=== PATIENT | male | born 1985 | race Caucasian/White ===

== ENCOUNTER 2017-07-12 21:21 | Emergency (ER) | payer SELFPAY ==
[~2017-07-12 21:21] MED LIST: CYCL-36 PO; IBUP800 PO
[2017-07-12 21:38] VITALS: BP 138/76; PULSE 90; RESP 18; TEMP 98.7; O2SAT 98
[2017-07-12] MEDS ORDERED: SODIUM CHLOR 0.9% 1000 ML INJ 1,000 ML IV ONE (21:53)
--- NOTE | 2017-07-12 21:56 | PD ---
HPI Chief Complaint: Dizziness Time Seen by Provider: 21:44 Travel History International Travel<30 days: No Contact w/Intl Traveler<30days: No Traveled to known affect area: No History of Present Illness HPI 32-year-old male presents for evaluation after witnessed syncopal event. Prior to arrival the patient was sitting in a chair at an meeting. He reports that he pressed on his left mid back where he has been having pain and he reports that he felt lightheaded and dizzy and hot and then he passed out. He had a witnessed 45-second syncopal episode in the chair. He did not fall onto the ground. Currently feels improved. He reports that he has had left mid back pain for the past 4 days on a constant basis. He does not recall any injuries. Denies abdominal pain, chest pain, shortness of breath, nausea or vomiting, headache, blurred vision, hematuria. No history of kidney stones. No significant past medical history. He does report that he has had a productive cough for the past 2 months. The cough is productive with white sputum. He was seen at an outside hospital 1 month ago where he was prescribed azithromycin, prednisone and an inhaler and the cough persists. He has no other complaints. PFSH Past Medical History Medical History: Denies Significant Hx Diminished Hearing: No Immunizations Current: Yes Past Surgical History Surgical History: No Previous Surgery Social History Alcohol Use: No (QUIT) Tobacco Use: No (QUIT) Substance Use: No Allergies-Medications (Allergen,Severity, Reaction): Coded Allergies: No Known Allergies (Unverified Adverse Reaction, Unknown, 07/12/17) Reported Meds & Prescriptions Reported Meds & Active Scripts Active Flexeril (Cyclobenzaprine HCl) 10 Mg Tab 10 Mg PO TID PRN Motrin 800 Mg Tab (Ibuprofen) 800 Mg Tab 800 Mg PO Q8H PRN 10 Days Review of Systems Except as stated in HPI: all other systems reviewed are Neg Physical Exam Narrative GENERAL: Well-developed well-nourished male in no acute distress SKIN: Warm and dry. HEAD: Atraumatic. Normocephalic. EYES: Pupils equal and round. No scleral icterus. No injection or drainage. ENT: No nasal bleeding or discharge. Mucous membranes pink and moist. NECK: Trachea midline. No JVD. CARDIOVASCULAR: Regular rate and rhythm. No murmur appreciated. RESPIRATORY: No accessory muscle use. Clear to auscultation. Breath sounds equal bilaterally. GASTROINTESTINAL: Abdomen soft, non-tender, nondistended. Hepatic and splenic margins not palpable. MUSCULOSKELETAL: No obvious deformities. Some tenderness to palpation to the left thoracic paravertebral musculature. There is no tenderness to palpation along the thoracic or lumbar midline spine. NEUROLOGICAL: Awake and alert. No obvious cranial nerve deficits. Motor grossly within normal limits. Normal speech. PSYCHIATRIC: Appropriate mood and affect; insight and judgment normal. Data Data Last Documented VS Orders Orders Electrocardiogram (07/12/17 21:53) Complete Blood Count With Diff (07/12/17 21:53) Comprehensive Metabolic Panel (07/12/17 21:53) Magnesium (Mg) (07/12/17 21:53) Urinalysis - C+S If Indicated (07/12/17 21:53) Chest, Single Ap (07/12/17 21:53) Blood Glucose (07/12/17 21:53) Ecg Monitoring (07/12/17 21:53) Iv Access Insert/Monitor (07/12/17 21:53) Oximetry (07/12/17 21:53) Sodium Chloride 0.9% Flush (Ns Flush) (07/12/17 22:00) Sodium Chlor 0.9% 1000 Ml Inj (Ns 1000 M (07/12/17 21:53) Orthostatic Vital Signs (07/12/17 22:58) Orthostatic Vital Signs (07/12/17 23:36) Ed Discharge Order (07/13/17 01:22) Labs Laboratory Tests Test 07/12/17 22:25 07/12/17 22:30 White Blood Count 13.5 TH/MM3 Red Blood Count 5.74 MIL/MM3 Hemoglobin 16.6 GM/DL Hematocrit 48.3 % Mean Corpuscular Volume 84.2 FL Mean Corpuscular Hemoglobin 28.8 PG Mean Corpuscular Hemoglobin Concent 34.3 % Red Cell Distribution Width 14.3 % Platelet Count 382 TH/MM3 Mean Platelet Volume 7.0 FL Neutrophils (%) (Auto) 73.2 % Lymphocytes (%) (Auto) 18.2 % Monocytes (%) (Auto) 7.5 % Eosinophils (%) (Auto) 0.8 % Basophils (%) (Auto) 0.3 % Neutrophils # (Auto) 9.8 TH/MM3 Lymphocytes # (Auto) 2.4 TH/MM3 Monocytes # (Auto) 1.0 TH/MM3 Eosinophils # (Auto) 0.1 TH/MM3 Basophils # (Auto) 0.0 TH/MM3 CBC Comment DIFF FINAL Differential Comment Blood Urea Nitrogen 15 MG/DL Creatinine 1.19 MG/DL Random Glucose 89 MG/DL Total Protein 8.0 GM/DL Albumin 4.4 GM/DL Calcium Level 9.2 MG/DL Magnesium Level 1.9 MG/DL Alkaline Phosphatase 88 U/L Aspartate Amino Transf (AST/SGOT) 19 U/L Alanine Aminotransferase (ALT/SGPT) 28 U/L Total Bilirubin 0.7 MG/DL Sodium Level 139 MEQ/L Potassium Level 4.3 MEQ/L Chloride Level 100 MEQ/L Carbon Dioxide Level 34.1 MEQ/L Anion Gap 5 MEQ/L Estimat Glomerular Filtration Rate 72 ML/MIN Urine Color YELLOW Urine Turbidity CLEAR Urine pH 6.0 Urine Specific [place] 1.025 Urine Protein TRACE mg/dL Urine Glucose (UA) NEG mg/dL Urine Ketones NEG mg/dL Urine Occult Blood NEG Urine Nitrite NEG Urine Bilirubin NEG Urine Urobilinogen 2.0 MG/DL Urine Leukocyte Esterase NEG Urine RBC LESS THAN 1 /hpf Urine WBC 3 /hpf Urine Mucus FEW /lpf Microscopic Urinalysis Comment CULT NOT INDICATED MDM Medical Decision Making Medical Screen Exam Complete: Yes Emergency Medical Condition: Yes Medical Record Reviewed: Yes Differential Diagnosis Vasovagal syncope, hypoglycemia, orthostatic hypotension, electrolyte abnormality, arrhythmia Narrative Course The patient was placed on ECG monitor and pulse oximetry. Twelve-lead EKG was obtained. Chest x-ray, urinalysis, lab work ordered. The patient will be given IV fluids. Orthostatic vital signs will be obtained. He will be monitored. Chest x-ray reveals no acute abnormalities. EKG reveals sinus rhythm. At the end of my shift the patient was signed out pending laboratory evaluation Walter Avery July 12, 2017 21:56
[2017-07-12 22:00] VITALS: BP 124/67; PULSE 84; RESP 16; O2SAT 98
[2017-07-12] MEDS ORDERED: SODIUM CHLORIDE 0.9% FLUSH 10 ML FLUSH IVF PRN (22:00)
--- NOTE | 2017-07-12 22:31 | RADRPT ---
EXAM DATE/TIME: 07/12/2017 22:11 [facility] COMPARISON: No previous studies available for comparison. INDICATIONS : Cough and short of breath. MEDICAL HISTORY : None. SURGICAL HISTORY : None. ENCOUNTER: Initial ACUITY: 1 day PAIN SCORE: 0/10 LOCATION: Bilateral chest FINDINGS: A single view of the chest demonstrates the lungs to be symmetrically aerated without evidence of mas s, infiltrate or effusion. The cardiomediastinal contours are unremarkable. Osseous structures are intact. CONCLUSION: No acute disease. Dimitri Yin MD on July 12, 2017 at 22:28 Board Certified Radiologist. This report was verified electronically.
[2017-07-12 22:54] LABS: AUTOMATED NEUTROPHIL # 9.8 TH/MM3 (1.8-7.7); BASOPHIL % 0.3 % (0.0-2.0); EOSINOPHIL # 0.1 TH/MM3 (0-0.4); EOSINOPHIL % 0.8 % (0.0-4.0); HEMATOCRIT 48.3 % (39.0-51.0); HEMOGLOBIN 16.6 GM/DL (13.0-17.0); LYMPH % 18.2 % (9.0-44.0); LYMPHOCYTE # 2.4 TH/MM3 (1.0-4.8); MEAN CELL VOLUME 84.2 FL (80.0-100.0); MEAN CORPUSCULAR HEMOGLOBIN 28.8 PG (27.0-34.0); MEAN CORPUSCULAR HGB CONC 34.3 % (32.0-36.0); MONO % 7.5 % (0.0-8.0); NEUT % 73.2 % (16.0-70.0); PLATELET COUNT 382 TH/MM3 (150-450); RED BLOOD COUNT 5.74 MIL/MM3 (4.50-5.90); RED CELL DISTRIBUTION WIDTH 14.3 % (11.6-17.2); WHITE BLOOD COUNT 13.5 TH/MM3 (4.0-11.0)
[2017-07-12 23:00] VITALS: BP 125/66; PULSE 73; RESP 16; O2SAT 98
[2017-07-12 23:02] LABS: BILIRUBIN, URINE NEG (NEG); BLOOD, URINE NEG (NEG); GLUCOSE,URINE NEG (NEG); KETONE, URINE NEG (NEG); MUCUS URINE FEW /lpf (OCC); NITRITE,URINE NEG (NEG); URINE COLOR YELLOW (YELLW/STRAW); URINE LEUKOCYTE ESTERASE NEG (NEG)
[2017-07-12 23:07] LABS: ALKALINE PHOSPHATASE 88 U/L (45-117); TOTAL BILIRUBIN ADULT 0.7 MG/DL (0.2-1.0)
[2017-07-12 23:09] LABS: ALBUMIN 4.4 GM/DL (3.4-5.0); ALT (GPT) 28 U/L (12-78); AST (GOT) 19 U/L (15-37); BICARBONATE 34.1 MEQ/L (21.0-32.0); BLOOD UREA NITROGEN 15 MG/DL (7-18); CALCIUM 9.2 MG/DL (8.5-10.1); CHLORIDE 100 MEQ/L (98-107); CREATININE 1.19 MG/DL (0.60-1.30); GLOMERULAR FILTRATION RATE 72 ML/MIN (>89); GLUCOSE,RANDOM 89 MG/DL (74-106); MAGNESIUM 1.9 MG/DL (1.5-2.5); SODIUM (NA) 139 MEQ/L (136-145)
[2017-07-13 00:27] VITALS: BP_SYST 119; BP_SYST 126; BP_SYST 134; BP_DIAS 63; BP_DIAS 66; BP_DIAS 70; RESP 16
--- NOTE | 2017-07-13 01:17 | PD ---
Physical Exam Date Seen by Provider: July 13, 2017 Time Seen by Provider: 01:05 Narrative Patient was a syncopal episode patient has imaging done patient has labs done patient has orthostatics done all within normal limits there is no need for further workup in the ER there is no need for admission patient is discharged with vasovagal syncope follow-up as an outpatient Data Data Last Documented VS Vital Signs Date Time Temp Pulse Resp B/P (MAP) Pulse Ox O2 Delivery O2 Flow Rate FiO2 07/13/17 01:26 07/13/17 00:27 73 16 84 88 07/12/17 23:00 98 Room Air 07/12/17 21:38 98.7 Orders Orders Electrocardiogram (07/12/17 21:53) Complete Blood Count With Diff (07/12/17 21:53) Comprehensive Metabolic Panel (07/12/17 21:53) Magnesium (Mg) (07/12/17 21:53) Urinalysis - C+S If Indicated (07/12/17 21:53) Chest, Single Ap (07/12/17 21:53) Blood Glucose (07/12/17 21:53) Ecg Monitoring (07/12/17 21:53) Iv Access Insert/Monitor (07/12/17 21:53) Oximetry (07/12/17 21:53) Sodium Chloride 0.9% Flush (Ns Flush) (07/12/17 22:00) Sodium Chlor 0.9% 1000 Ml Inj (Ns 1000 M (07/12/17 21:53) Orthostatic Vital Signs (07/12/17 22:58) Orthostatic Vital Signs (07/12/17 23:36) Ed Discharge Order (07/13/17 01:22) Labs Laboratory Tests Test 07/12/17 22:25 07/12/17 22:30 White Blood Count 13.5 TH/MM3 Red Blood Count 5.74 MIL/MM3 Hemoglobin 16.6 GM/DL Hematocrit 48.3 % Mean Corpuscular Volume 84.2 FL Mean Corpuscular Hemoglobin 28.8 PG Mean Corpuscular Hemoglobin Concent 34.3 % Red Cell Distribution Width 14.3 % Platelet Count 382 TH/MM3 Mean Platelet Volume 7.0 FL Neutrophils (%) (Auto) 73.2 % Lymphocytes (%) (Auto) 18.2 % Monocytes (%) (Auto) 7.5 % Eosinophils (%) (Auto) 0.8 % Basophils (%) (Auto) 0.3 % Neutrophils # (Auto) 9.8 TH/MM3 Lymphocytes # (Auto) 2.4 TH/MM3 Monocytes # (Auto) 1.0 TH/MM3 Eosinophils # (Auto) 0.1 TH/MM3 Basophils # (Auto) 0.0 TH/MM3 CBC Comment DIFF FINAL Differential Comment Blood Urea Nitrogen 15 MG/DL Creatinine 1.19 MG/DL Random Glucose 89 MG/DL Total Protein 8.0 GM/DL Albumin 4.4 GM/DL Calcium Level 9.2 MG/DL Magnesium Level 1.9 MG/DL Alkaline Phosphatase 88 U/L Aspartate Amino Transf (AST/SGOT) 19 U/L Alanine Aminotransferase (ALT/SGPT) 28 U/L Total Bilirubin 0.7 MG/DL Sodium Level 139 MEQ/L Potassium Level 4.3 MEQ/L Chloride Level 100 MEQ/L Carbon Dioxide Level 34.1 MEQ/L Anion Gap 5 MEQ/L Estimat Glomerular Filtration Rate 72 ML/MIN Urine Color YELLOW Urine Turbidity CLEAR Urine pH 6.0 Urine Specific [place] 1.025 Urine Protein TRACE mg/dL Urine Glucose (UA) NEG mg/dL Urine Ketones NEG mg/dL Urine Occult Blood NEG Urine Nitrite NEG Urine Bilirubin NEG Urine Urobilinogen 2.0 MG/DL Urine Leukocyte Esterase NEG Urine RBC LESS THAN 1 /hpf Urine WBC 3 /hpf Urine Mucus FEW /lpf Microscopic Urinalysis Comment CULT NOT INDICATED MDM Medical Record Reviewed: Yes Supervised Visit with SARAY: Yes Narrative Course All labs and imaging and vital signs are within normal limits he is safe for discharge and follow-up as an outpatient Diagnosis Primary Impression: Syncopal episodes Qualified Codes: R55 - Syncope and collapse Patient Instructions: General Instructions, Syncope (ED) Disposition: 01 DISCHARGE HOME Condition: Jonas Fontanez MD July 13, 2017 01:17
--- NOTE | 2017-07-14 11:56 | EKG ---
Date Performed: 07/12/2017 Time Performed: 22:17:53 PTAGE: 32 years EKG: Sinus rhythm NORMAL ECG NO PREVIOUS TRACING DOCTOR: Leonor Olsen Interpretating Date/Time 07/14/2017 11:50:28
== END 2017-07-13 01:27 | disposition home or self-care (01) ==
LOC: NEPE 21:21
DX: R55 Syncope and collapse (principal)
CPT/HCPCS: 71045; 80053; 81001; 83735; 85025; 93005; 99285; J7030

== ENCOUNTER 2018-04-16 18:09 | Inpatient (IN) ==
--- NOTE | 2018-04-16 20:49 | ED ---
HPI General Chief complaint: Urogenital-Male Stated complaint: Possible kidney stone/nausea Time Seen by Provider: 04/16/18 20:30 History of Present Illness HPI narrative: RMChiqui Patient is a 32-year-old male with history of IV drug abuse last used 2 days ago and admitted slip up who is trying to become sober and living in a department today for evaluation of dark urine, "not feeling well", mild nausea without abdominal pain and noticing some yellowing of his eyes as well as pruritus. Patient states she is never been diagnosed with hepatitis before but is wondering if he might have liver problem. He has not seen a primary care physician in some time. No history of excessive Tylenol use or drinking. He is quite anxious about his symptoms. No easy bruising or bleeding, no blood in the stool no emesis. No fevers no cough no congestion. Symptoms moderate, for the past 2 days, gradually worsening, associated signs symptoms in context as above. Related Data Home Medications Medication Instructions Recorded Confirmed No Known Home Medications 04/16/18 04/16/18 Allergies Allergy/AdvReac Type Severity Reaction Status Date / Time No Known Allergies Allergy Unverified 10/30/17 14:50 Review of Systems ROS: all other systems reviewed are negative PMFSH Medical History Medical History IV drug abuse (Acute) Surgical History Surgical History No history of previous surgery (Acute) Family History Family History Other Family history normal Social History Social History Substance History: Past History Second Hand Smoke Exposure: No Smoking Status: Current every day smoker Tobacco Type: Cigarettes How Often Do You Have a Drink Containing Alcohol: Never Recent Travel in [place] within the Last 8 Weeks: No Recent Out of Country Travel within the Last 8 Weeks: No Substance Abuse Detail Opiates: Substance Use Status: Early Remission Route Used Substance Abuse: Intravenously Last Used: 2 days ago Immunization History Tetanus Immunization: >5 Years Exam Narrative Exam Narrative: GENERAL: Well-developed well-nourished, no obvious distress. SKIN: Focused skin assessment warm/dry. Some scattered excoriations from scratching, mild jaundice. HEAD: Atraumatic. Normocephalic. EYES: Pupils equal and round. Mild scleral icterus no injection or drainage. ENT: No nasal bleeding or discharge. Mucous membranes pink and moist. NECK: Trachea midline. No JVD. CARDIOVASCULAR: Regular rate and rhythm. No murmur appreciated. RESPIRATORY: No accessory muscle use. Clear to auscultation. Breath sounds equal bilaterally. GASTROINTESTINAL: Abdomen soft, non-tender, nondistended. Hepatic and splenic margins not palpable. Caro sign negative, no mass. MUSCULOSKELETAL: No obvious deformities. No clubbing. No cyanosis. No edema. NEUROLOGICAL: Awake and alert. No obvious cranial nerve deficits. Motor grossly within normal limits. Normal speech. PSYCHIATRIC: Appropriate mood and affect; insight and judgment normal. Course Hospital Course: I reviewed the patient's history and exam. I reviewed his laboratory testing. Patient has elevated transaminases and bilirubin. Patient's complaint of acute onset symptoms is consistent with acute hepatitis. I discussed the case with the patient as well as the admitting service who is agreed to admit the patient. Initial Documented Vital Signs Temperature 98.6 F 04/16/18 18:17 Pulse Rate 70 04/16/18 18:17 Respiratory Rate 17 04/16/18 18:17 Blood Pressure 156/72 H 04/16/18 18:17 Pulse Oximetry 99 04/16/18 18:17 Last Documented Vital Signs Temperature 98.6 F 04/16/18 18:17 Pulse Rate 67 04/16/18 22:20 Respiratory Rate 18 04/16/18 22:20 Blood Pressure 123/58 L 04/16/18 22:20 Pulse Oximetry 97 04/16/18 22:20 Medical Decision Making MDM Narrative Medical decision making narrative: Patient room in the emergency department, he appears to be in some level of liver failure and I would suspect he is on the milder side of the spectrum. Basic labs a CT scan of his abdomen and pelvis have been ordered. I think that if his labs reviewed that he is on a milder side of liver failure is indicated by bilirubin and coagulation studies (former I would expect to be mildly elevated) he can probably be discharged to these daily health clinic with the health department for further management. Patient seen as part of rapid medical assessment in triage. They were handed off to the SARAY to follow the MDM as outlined above. If results are outside the patient's expected ED course then either myself or the other physicians will be available for consultation. Medical Screen Exam Complete: Yes Emergency Medical Condition: Yes Lab Data Result diagrams: 04/16/18 21:05 04/16/18 21:05 Lab Results 04/16/18 04/16/18 04/16/18 Range/Units 20:30 21:05 21:05 WBC 6.7 (4.0-11.0) th/mm3 RBC 5.53 (4.50-5.90) mil/mm3 Hgb 16.7 (13.0-17.0) gm/dL Hct 47.1 (39.0-51.0) % MCV 85.3 (80.0-100.0) fL MCH 30.2 (27.0-34.0) pg MCHC 35.5 (32.0-36.0) % RDW 14.8 (11.6-17.2) % Plt Count 340 (150-450) th/mm3 MPV 7.9 (7.0-11.0) fL Neut % (Auto) 59.9 (16.0-70.0) % Lymph % (Auto) 28.0 (9.0-44.0) % [place] % (Auto) 9.1 H (0.0-8.0) % Eos % (Auto) 2.0 (0.0-4.0) % Baso % (Auto) 1.0 (0.0-2.0) % Neut # (Auto) 4.0 (1.8-7.7) th/mm3 Lymph # (Auto) 1.9 (1.0-4.8) th/mm3 [place] # (Auto) 0.6 (0.0-0.9) th/mm3 Eos # (Auto) 0.1 (0.0-0.4) th/mm3 Baso # (Auto) 0.1 (0.0-0.2) th/mm3 WBC Differential . Differential Comment Auto diff final PT 10.9 (9.8-11.6) sec INR 1.1 Ratio APTT 35.0 H (23.4-31.7) sec Sodium (136-145) meq/L Potassium (3.5-5.1) meq/L Chloride (98-107) meq/L Carbon Dioxide (21.0-32.0) meq/L Anion Gap (5-15) meq/L BUN (7-18) mg/dL Creatinine (0.60-1.30) mg/dL Estimated GFR (>89) mL/min Random Glucose (74-106) mg/dL Calcium (8.5-10.1) mg/dL Magnesium (1.5-2.5) mg/dL Total Bilirubin (0.2-1.0) mg/dL Direct Bilirubin (0.0-0.2) mg/dL Indirect Bilirubin (0.0-0.8) mg/dL AST (15-37) U/L ALT (12-78) U/L Alkaline Phosphatase (45-117) U/L Total Protein (6.4-8.2) g/dL Albumin (3.4-5.0) g/dL Lipase (73-393) U/L Urine Color [place] (Yellw/Straw) Urine Clarity Clear (Clear) Urine pH 7.0 (5.0-8.5) Ur Specific [place] 1.017 (1.002-1.035) Urine Protein 30 H (Neg-Trace) mg/dL Urine Glucose (UA) Negative (Negative) mg/dL Urine Ketones Negative (Negative) mg/dL Urine Occult Blood Negative (Negative) Urine Nitrate Negative (Negative) Urine Bilirubin Moderate H (Negative) Urine Ictotest Positive H (Negative) Urine Urobilinogen 1.0 (Less than 2) mg/dL Ur Leukocyte Esterase Negative (Negative) Urine RBC Less than 1 (0-3) /hpf Urine WBC 1 (0-5) /hpf Amorphous Sediment Rare H (None) /hpf Urine Bacteria Rare H (None) /hpf Urine Mucus Few H (Occasional) /lpf Micro UA Comment Culture not ind Ur Microscopic Review Not Reportable Urine Culture Comments Culture not ind Hepatitis A IgM Ab (Nonreactive) Hep Bs Antigen (Nonreactive) Hep B Core IgM Ab (Nonreactive) Hep C IgG Ab (Nonreactive) HIV 1&2 Ab/P24 Ag 4thGn (Nonreactive) 04/16/18 04/16/18 Range/Units 21:05 23:10 WBC (4.0-11.0) th/mm3 RBC (4.50-5.90) mil/mm3 Hgb (13.0-17.0) gm/dL Hct (39.0-51.0) % MCV (80.0-100.0) fL MCH (27.0-34.0) pg MCHC (32.0-36.0) % RDW (11.6-17.2) % Plt Count (150-450) th/mm3 MPV (7.0-11.0) fL Neut % (Auto) (16.0-70.0) % Lymph % (Auto) (9.0-44.0) % [place] % (Auto) (0.0-8.0) % Eos % (Auto) (0.0-4.0) % Baso % (Auto) (0.0-2.0) % Neut # (Auto) (1.8-7.7) th/mm3 Lymph # (Auto) (1.0-4.8) th/mm3 [place] # (Auto) (0.0-0.9) th/mm3 Eos # (Auto) (0.0-0.4) th/mm3 Baso # (Auto) (0.0-0.2) th/mm3 WBC Differential Differential Comment PT (9.8-11.6) sec INR Ratio APTT (23.4-31.7) sec Sodium 139 (136-145) meq/L Potassium 3.9 (3.5-5.1) meq/L Chloride 101 (98-107) meq/L Carbon Dioxide 30.6 (21.0-32.0) meq/L Anion Gap 7 (5-15) meq/L BUN 9 (7-18) mg/dL Creatinine 1.07 (0.60-1.30) mg/dL Estimated GFR 81 L (>89) mL/min Random Glucose 106 (74-106) mg/dL Calcium 9.0 (8.5-10.1) mg/dL Magnesium 2.2 (1.5-2.5) mg/dL Total Bilirubin 9.5 H (0.2-1.0) mg/dL Direct Bilirubin 7.6 H (0.0-0.2) mg/dL Indirect Bilirubin 1.9 H (0.0-0.8) mg/dL AST 1410 H (15-37) U/L ALT 1427 H (12-78) U/L Alkaline Phosphatase 160 H (45-117) U/L Total Protein 7.7 (6.4-8.2) g/dL Albumin 4.0 (3.4-5.0) g/dL Lipase 181 (73-393) U/L Urine Color (Yellw/Straw) Urine Clarity (Clear) Urine pH (5.0-8.5) Ur Specific [place] (1.002-1.035) Urine Protein (Neg-Trace) mg/dL Urine Glucose (UA) (Negative) mg/dL Urine Ketones (Negative) mg/dL Urine Occult Blood (Negative) Urine Nitrate (Negative) Urine Bilirubin (Negative) Urine Ictotest (Negative) Urine Urobilinogen (Less than 2) mg/dL Ur Leukocyte Esterase (Negative) Urine RBC (0-3) /hpf Urine WBC (0-5) /hpf Amorphous Sediment (None) /hpf Urine Bacteria (None) /hpf Urine Mucus (Occasional) /lpf Micro UA Comment Ur Microscopic Review Urine Culture Comments Hepatitis A IgM Ab Nonreactive (Nonreactive) Hep Bs Antigen Nonreactive (Nonreactive) Hep B Core IgM Ab Nonreactive (Nonreactive) Hep C IgG Ab Nonreactive (Nonreactive) HIV 1&2 Ab/P24 Ag 4thGn Nonreactive (Nonreactive) Imaging Data Radiologist's impression: Abdomen/Pelvis CT 04/16/18 20:35 CONCLUSION: 1. Mildly prominent periportal lymph nodes nodes identified, otherwise unremarkable study. Discharge Plan Discharge Disposition Patient Disposition: ED Admit(ED Internal Use Only) Discharge Condition Condition: Stable Discharge Order Discharge Orders: ED Use Only Admit Order (Routine); Ordered 04/16/18 Ordered By: Duane Tom Discharge Details Diagnosis: Elevated transaminase level, Acute hepatitis Physicians Team ED Provider: David Lopes ED Midlevel Provider: Duane Tom Primary Care Provider: Primary Care Angeli,Cleo Attending Provider: Sparkle Ocampo Other Providers: Sekou Schreiber V Discharge Interventions Interventions: Vital Signs Last Done: 04/16/18 22:20 Status ED Status: Admitted Patient
[2018-04-16 21:18] LABS: Baso # (Auto) 0.1 th/mm3 (0.0-0.2); Eos # (Auto) 0.1 th/mm3 (0.0-0.4); Hematocrit 47.1 % (39.0-51.0); Hemoglobin 16.7 gm/dL (13.0-17.0); Lymph # (Auto) 1.9 th/mm3 (1.0-4.8); Mean Corpuscular HGB Conc 35.5 % (32.0-36.0); Mean Corpuscular Hemoglobin 30.2 pg (27.0-34.0); Mean Corpuscular Volume 85.3 fL (80.0-100.0); Mean Platelet Volume 7.9 fL (7.0-11.0); Mono # (Auto) 0.6 th/mm3 (0.0-0.9); Mono % (Auto) 9.1 % (0.0-8.0); Neut % (Auto) 59.9 % (16.0-70.0); Platelet Count 340 th/mm3 (150-450); Red Blood Count 5.53 mil/mm3 (4.50-5.90); Red Cell Distribution Width 14.8 % (11.6-17.2); White Blood Count 6.7 th/mm3 (4.0-11.0)
[2018-04-16 21:26] LABS: Amorphous Sediment,Urine Rare /hpf; Bacteria,Urine Rare /hpf; Bilirubin,Urine Moderate (Negative); Clarity,Urine Clear (Clear); Color,Urine Amber (Yellw/Straw); Glucose,Urine (UA) Negative (Negative); Leukocyte Esterase,Urine Negative (Negative); Mucus,Urine Few /lpf (Occasional); Nitrite,Urine Negative (Negative); Specific Gravity,Urine 1.017 (1.002-1.035)
[2018-04-16 21:28] LABS: Carbon Dioxide 30.6 meq/L (21.0-32.0); Magnesium 2.2 mg/dL (1.5-2.5); Potassium 3.9 meq/L (3.5-5.1)
[2018-04-16 21:31] LABS: Ictotest,Urine Positive (Negative)
--- NOTE | 2018-04-16 21:36 | CT ---
EXAM DATE: 04/16/2018 9:28 PM EST AGE/SEX: 32 years / Male INDICATIONS: Nausea and dark urine for one week. CLINICAL DATA: This is the patient's initial encounter. Patient reports that signs and symptoms have been present for 1 day and indicates a pain score of 0/10. MEDICAL/SURGICAL HISTORY: None. None. ORAL CONTRAST: No oral contrast ingested. RADIATION DOSE: 8.71 CTDI (mGy) COMPARISON: No prior exams available for comparison. TECHNIQUE: Multiple contiguous axial images were obtained through the abdomen and pelvis following b olus infusion of 98 ml Omnipaque 350 (iohexol) nonionic water-soluble contrast as a single exam dos e. No oral contrast ingested. Using automated exposure control and adjustment of the mA and/or kV ac cording to patient size, radiation dose was kept as low as reasonably achievable to obtain optimal di agnostic quality images. DICOM format image data is available electronically for review and comparis on. FINDINGS: Lung bases are clear. Osseous structures are intact. No pleural or pericardial effusions are seen. Li toshia, gallbladder, spleen, kidneys, adrenal glands, stomach, pancreas unremarkable. There are mildly l ymph nodes measuring up to 1.7 cm on image 30. Urinary bladder, prostate, small bowel, large bowel, a ppendix unremarkable. No aneurysm is seen. No free fluid or free air. CONCLUSION: 1. Mildly prominent periportal lymph nodes nodes identified, otherwise unremarkable study. Electronically signed by: Kale Mcadams MD Board Certified Radiologist 04/16/2018 9:35 PM EST
[2018-04-16 21:38] LABS: Total Protein 7.7 g/dL (6.4-8.2)
[2018-04-16 21:41] LABS: INR 1.1 Ratio; Prothrombin Time 10.9 sec (9.8-11.6)
[2018-04-16] MEDS ORDERED: Bisacodyl 10 MG Supp RECTAL PRN (22:49)
--- NOTE | 2018-04-16 22:51 | P.HPIM ---
History of Present Illness Primary Care Physician: No Primary Care Physician 32-year-old male with a past medical history significant for IV drug abuse presents to the emergency department for evaluation of dark urine and jaundice with accompanying weakness/fatigue. The patient reports he was 3 weeks sober from IV drug use until 2 days ago when he had a slip and used IV Dilaudid. The patient reports a history of using dirty needles. He complains of dark urine for the past 1.5 weeks and began to notice scleral icterus approximately 2 days ago. He states he has been feeling nauseated with multiple bouts of postprandial emesis in addition to weakness and fatigue for the past 3 weeks. He denies any chest pain or shortness of breath. No fever/chills. No focal neurologic deficits. Inpatient Certification Inpatient Certification: I certify that the inpatient services were ordered in accordance with Medicare regulations governing the order. This includes certification that hospital inpatient services are reasonable and necessary and in the case of services not specified as inpatient-only under 42 CFR 419.22(n), that they are appropriately provided as inpatient services in accordance to with the 2-midnight benchmark under 43 CFR 412.3(e) Estimated Total Length of Stay (Days): 3 Plans for Post Hospital Care: Not yet determined Review of Systems Review of Systems: all other systems reviewed are negative [facility] Medical History Medical History IV drug abuse (Acute) Surgical History Surgical History No history of previous surgery (Acute) Family History Family History Other Family history normal Social History Social History Substance History: Past History Second Hand Smoke Exposure: No Smoking Status: Current every day smoker Tobacco Type: Cigarettes How Often Do You Have a Drink Containing Alcohol: Never Recent Travel in [place] within the Last 8 Weeks: No Recent Out of Country Travel within the Last 8 Weeks: No Substance Abuse Detail Opiates: Substance Use Status: Early Remission Route Used Substance Abuse: Intravenously Last Used: 2 days ago Immunization History Tetanus Immunization: >5 Years Medications and Allergies Allergies Allergy/AdvReac Type Severity Reaction Status Date / Time No Known Allergies Allergy Unverified 10/30/17 14:50 Home Medications Medication Instructions Recorded Confirmed Type No Known Home Medications 04/16/18 04/16/18 History Active Medications: Active Medications Sodium Chloride (Ns Flush) 2 ml IV.FLUSH PRN PRN PRN Reason: FLUSH AFTER USING IV ACCESS Physical Exam Vital signs: Vital Signs 04/16/18 18:17 04/16/18 22:20 Temperature 98.6 F Pulse Rate 70 67 Respiratory Rate 17 18 Blood Pressure 156/72 H 123/58 L Pulse Oximetry 99 97 Intake & Output 04/16/18 04/16/18 04/17/18 06:59 18:59 06:59 Weight 104.326 kg Narrative: Gen.: No acute distress Head: Normocephalic. Atraumatic. EENT: Pupils equal round and reactive to light. Nose without drainage. Airway intact. Throat without injection. Positive scleral icterus. Cardiovascular: Regular rate and rhythm. No murmurs, rubs or gallops. Respiratory: Lungs clear to auscultation bilaterally. No wheezes or rhonchi. Abdomen: Soft, nontender, nondistended. No peritoneal signs. Musculoskeletal: No gross deformities. No edema. Skin: No obvious rashes or erythema. Positive jaundice. Neuro: Sensory and motor grossly intact. Cranial nerves II through XII grossly intact. Results Labs CBC & Chem 7: 04/16/18 21:05 04/16/18 21:05 Imaging Impressions Abdomen/Pelvis CT 04/16/18 20:35 CONCLUSION: 1. Mildly prominent periportal lymph nodes nodes identified, otherwise unremarkable study. Caprini VTE Risk Assessment Caprini VTE Risk Assessment: No/Low Risk (score <= 1) Caprini Risk Assessment Model: Point Value = 1 Point Value = 2 Point Value = 3 Point Value = 5 Age 41-60 Minor surgery BMI > 25 kg/m2 Swollen legs Varicose veins or History of unexplained or recurrent spontaneous Oral contraceptives or hormone replacement Sepsis (< 1 month) Serious lung disease, including pneumonia (< 1 month) Abnormal pulmonary function Acute myocardial infarction Congestive heart failure (< 1 month) History of inflammatory bowel disease Medical patient at bed rest Age 61-74 Arthroscopic surgery Major open surgery (> 45 min) Laparoscopic surgery (> 45 min) Malignancy Confined to bed (> 72 hours) Immobilizing plaster cast Central venous access Age >= 75 History of VTE Family history of VTE Factor V Leiden Prothrombin [id number] Lupus anticoagulant Anticardiolipin antibodies Elevated serum homocysteine Heparin-induced thrombocytopenia Other congenital or acquired thrombophilia Stroke (< 1 month) Elective arthroplasty Hip, pelvis, or leg fracture Acute spinal cord injury (< 1 month) Prophylaxis Regimen: Total Risk Factor Score Risk Level Prophylaxis Regimen 0-1 Low Early ambulation 2 Moderate Order ONE of the following: *Sequential Compression Device (SCD) *Heparin 5000 units SQ BID 3-4 Higher Order ONE of the following medications: *Heparin 5000 units SQ TID *Enoxaparin/Lovenox 40 mg SQ daily (WT < 150 kg, CrCl > 30 mL/min) *Enoxaparin/Lovenox 30 mg SQ daily (WT < 150 kg, CrCl > 10-29 mL/min) *Enoxaparin/Lovenox 30 mg SQ BID (WT < 150 kg, CrCl > 30 mL/min) AND/OR *Sequential Compression Device (SCD) 5 or more Highest Order ONE of the following medications: *Heparin 5000 units SQ TID (Preferred with Epidurals) *Enoxaparin/Lovenox 40 mg SQ daily (WT < 150 kg, CrCl > 30 mL/min) *Enoxaparin/Lovenox 30 mg SQ daily (WT < 150 kg, CrCl > 10-29 mL/min) *Enoxaparin/Lovenox 30 mg SQ BID (WT < 150 kg, CrCl > 30 mL/min) AND *Sequential Compression Device (SCD) Assessment and Plan Plan Assessment/plan: 1. Acute hepatitis Patient with transaminitis that is new from 2018 AST/ALT 1410/[address] of the abdomen/pelvis negative for acute process Hepatitis profile pending Gastroenterology consulted, appreciate assistance 2. IV drug abuse HIV antibodies pending Cessation counseling provided FEN Clear liquid diet Electrolytes: Monitor and replete as needed
[2018-04-17 00:52] LABS: Hepatitis A IgM Antibody Nonreactive (Nonreactive); Hepatitits B Surface Antigen Nonreactive (Nonreactive)
[2018-04-17 08:59] LABS: Baso % (Auto) 0.6 % (0.0-2.0); Eos # (Auto) 0.1 th/mm3 (0.0-0.4); Eos % (Auto) 2.1 % (0.0-4.0); Hematocrit 46.9 % (39.0-51.0); Lymph # (Auto) 1.9 th/mm3 (1.0-4.8); Lymph % (Auto) 28.2 % (9.0-44.0); Mean Corpuscular HGB Conc 34.1 % (32.0-36.0); Mean Corpuscular Hemoglobin 29.5 pg (27.0-34.0); Mean Corpuscular Volume 86.7 fL (80.0-100.0); Mean Platelet Volume 7.6 fL (7.0-11.0); Mono # (Auto) 0.6 th/mm3 (0.0-0.9); Neut % (Auto) 60.1 % (16.0-70.0); Platelet Count 333 th/mm3 (150-450); Red Blood Count 5.41 mil/mm3 (4.50-5.90); Red Cell Distribution Width 14.9 % (11.6-17.2); White Blood Count 6.7 th/mm3 (4.0-11.0)
[2018-04-17 09:26] LABS: Albumin 3.7 g/dL (3.4-5.0); Anion Gap 11 meq/L (5-15); Blood Urea Nitrogen 7 mg/dL (7-18); Calcium 8.9 mg/dL (8.5-10.1); Carbon Dioxide 26.8 meq/L (21.0-32.0); Chloride 102 meq/L (98-107); Glucose,Random 104 mg/dL (74-106); Potassium 3.6 meq/L (3.5-5.1); Sodium 140 meq/L (136-145)
[2018-04-17 09:34] LABS: Alanine Aminotransferase 1353 U/L (12-78); Alkaline Phosphatase 144 U/L (45-117); Aspartate Aminotransferase 1385 U/L (15-37)
[2018-04-17] MEDS: Senna/Docusate Sodium 8.6/50 MG Tablet PO SCH ×2 (13:54→20:57)
--- NOTE | 2018-04-17 17:24 | P.PNIM ---
Subjective Interval history: Patient denies any current abd pain. No other complaints. Physical Exam Vital signs: Vital Signs 04/16/18 18:17 04/16/18 22:20 04/17/18 02:42 Temperature 98.6 F Pulse Rate 70 67 80 Respiratory Rate 17 18 18 Blood Pressure 156/72 H 123/58 L 132/66 Pulse Oximetry 99 97 04/17/18 06:50 04/17/18 07:25 04/17/18 08:00 Temperature 98.1 F 98.2 F Pulse Rate 78 65 66 Respiratory Rate Blood Pressure 105/68 117/54 L 134/62 Pulse Oximetry 97 99 94 L 04/17/18 15:49 Temperature 98.8 F Pulse Rate 72 Respiratory Rate 16 Blood Pressure 130/68 Pulse Oximetry 95 Intake & Output 04/16/18 04/17/18 04/17/18 18:59 06:59 18:59 Weight 104.326 kg 104.545 kg Other: Weight On Admission 104.545 kg Narrative: alert and oriented Scleral icterus S1S2 CTA b/l abd soft, nontender, normal bowel sounds, no right upper quadrant tenderness No edema of the exts no neuro deficits. Results Labs CBC & Chem 7: 04/17/18 08:11 04/17/18 08:11 Imaging Imaging: Impressions Abdomen/Pelvis CT 04/16/18 20:35 CONCLUSION: 1. Mildly prominent periportal lymph nodes nodes identified, otherwise unremarkable study. Assessment and Plan Plan This patient is a 32 y/o male with a hx of IVDA who presents to the Ed with complaints of dark urine. He also has been experiencing weakness and fatigue. 1. Acute Hepatitis Patient with elevated LFTs AST/ALT 1380/1350, similar to yesterday. Total bilirubin is 9.5, direct 7.6 CT abd negative Hepatitis panel is negative GI consulted, I will follow up with their recommendations. Will follow up am labs. 2. IVDA Patient counseled on the dangers of continued use of IV drugs. He says he will quit. Pt is ambulatory, no pharmacotherapy for dvt prophylaxis. Encouraged ambulation. Started on diet, npo pmn Progress Note: Quality VTE Deep Vein Thrombosis/Pulmonary Embolism Present on Admission: No
--- NOTE | 2018-04-17 20:42 | P.CONGI ---
History of Present Illness Consult date: 04/17/18 Consult reason: Acute hepatitis Chief complaint: Acute Hepatitis History of Present Illness: Patient is a pleasant 32-year-old male with past medical history significant for IV drug abuse. Past use of cocaine for which he has been through detoxification program. There is no previous pertinent surgical history as per patient. Patient presented to the [facility] emergency department for evaluation of dark urine with jaundice generalized itching and generalized fatigue. Patient reports that he has been 3 weeks sober from IV drug use until 2 days ago when he used IV Dilaudid. Patient does endorse history of using shared needles. Patient endorses dark urine for the past 2 weeks with jaundice and scleral icterus for the last 2 days. Patient states he has been having accompanying nausea with emesis and generalized fatigue. Patient denies any obvious bleeding. Patient endorses homemade tattoos, high risk sexual behavior and again IV drug abuse. Patient denies any known family history of gastrointestinal disorders. Our service has been consulted to evaluate patient for acute hepatitis Review of Systems All other systems reviewed negative except as stated in HPI PMFSH - History History Provided By: Patient - Medical History Medical History: Medical History (Last Reviewed 04/16/18 @ 23:41 by Sparkle Ocampo MD) IV drug abuse - Surgical History Surgical History: Surgical History (Last Reviewed 04/16/18 @ 23:41 by Sparkle Ocampo MD) No history of previous surgery - Family History Family History: Family History Other Family history normal - Tobacco History Second Hand Smoke Exposure: Yes Tobacco Use In Past 30 Days: Yes Smoking Status: Current some day smoker Tobacco Type: Cigarettes - Alcohol History How Often Do You Have a Drink Containing Alcohol: Never - Substance Use History Substance History: Past History - Substance Use Type Opiates Type: dilaudid Status: Active Route Used: Intravenously Frequency: MONTLY Last Used: 04/15/2018 Reason for Use: Calm Down, Feels Good Comment: LOST VEHICLE AND STRESSED. FAMILY ISSUES. Crack/Cocaine Type: COCAINE Status: Early Remission Route Used: Intravenously Frequency: DAILY UNTIL 03/17/2018 DETOX Last Used: 03/17/2018 Reason for Use: Get High Methamphetamine Status: Early Remission Route Used: Intravenously Frequency: DAILY UNTIL 03/17/2018 DETOX Last Used: 03/17/2018 Heroin Status: Early Remission Frequency: DAILY UNTIL 03/17/2018 DETOX Last Used: 03/17/2018 Reason for Use: Get High - Travel History Recent Travel in the [place] Within the Last 8 Weeks: No Recent Travel Out of the Country Within the Last 8 Weeks: No - Immunization History Tetanus Immunization: >5 Years Hx Influenza Vaccine This Season: No Medications and Allergies Active Medications: Active Medications Al Hydroxide/Mg Hydroxide (Milk Of Magnesia Liq) 30 ml PO Q12H PRN PRN Reason: Mild Constipation Bisacodyl (Dulcolax Supp) 10 mg RECTAL DAILY PRN PRN Reason: SEVERE CONSITIPATION Cholestyramine Resin (Questran 4 Gm Pkt) 4 gm PO BID [facility] Lactulose (Lactulose Liq) 30 ml PO DAILY PRN PRN Reason: SEVERE CONSITIPATION Ondansetron HCl (Zofran Inj) 4 mg IV.PUSH Q6H PRN PRN Reason: NAUSEA OR VOMITING Senna/Docusate Sodium (Eloise-Colace) 1 tab PO BID [facility] Last Admin: 04/17/18 13:54 Dose: 1 tab Sennosides (Senokot) 17.2 mg PO Q12H PRN PRN Reason: Moderate Constipation Sodium Chloride (Ns Flush) 2 ml IV.FLUSH PRN PRN PRN Reason: FLUSH AFTER USING IV ACCESS Sodium Chloride (Ns Flush) 2 ml IV.FLUSH BID [facility] Last Admin: 04/17/18 13:54 Dose: 2 ml Sodium Chloride (Ns Flush) 2 ml IV.FLUSH PRN PRN PRN Reason: FLUSH AFTER USING IV ACCESS Allergies Allergy/AdvReac Type Severity Reaction Status Date / Time No Known Allergies Allergy Unverified 10/30/17 14:50 Home Medications Medication Instructions Recorded Confirmed Type No Known Home Medications 04/16/18 04/16/18 History Exam Vital signs: Vital Signs 04/16/18 22:20 04/17/18 02:42 04/17/18 06:50 Temperature Pulse Rate 67 80 78 Respiratory Rate 18 18 18 Blood Pressure 123/58 L 132/66 105/68 Pulse Oximetry 97 97 04/17/18 07:25 04/17/18 08:00 04/17/18 15:49 Temperature 98.1 F 98.2 F 98.8 F Pulse Rate 65 66 72 Respiratory Rate 18 16 16 Blood Pressure 117/54 L 134/62 130/68 Pulse Oximetry 99 94 L 95 04/17/18 20:00 Temperature 98.7 F Pulse Rate 86 Respiratory Rate 20 Blood Pressure 141/89 H Pulse Oximetry 95 Intake & Output 04/17/18 04/17/18 04/18/18 06:59 18:59 06:59 Weight 104.545 kg Other: Weight On Admission 104.545 kg - Constitutional no acute distress, chronically ill appearing, cooperative - Routine HEENT Exam Head: Present: normocephalic Eye: Present: conjunctival icterus - Routine Neck Exam Present: supple - Routine Respiratory Exam Present: CTA bilaterally. Absent: accessory muscle use - Routine Cardiovascular Exam Present: RRR, S1, S2 - Routine Abdominal Exam Present: soft, normoactive bowel sounds. Absent: tenderness, distended - Routine Extremities Exam Absent: edema - Routine Skin Exam Present: dry, warm, jaundice - Routine Neurological Exam Present: alert, oriented X3 Results - Labs CBC & Chem 7: 04/17/18 08:11 04/17/18 08:11 Labs: Laboratory Results - last 24 hr 04/16/18 04/16/18 04/16/18 20:30 21:05 21:05 WBC 6.7 RBC 5.53 Hgb 16.7 Hct 47.1 MCV 85.3 MCH 30.2 MCHC 35.5 RDW 14.8 Plt Count 340 MPV 7.9 Prelim Diff (Auto) Neut % (Auto) 59.9 Lymph % (Auto) 28.0 [place] % (Auto) 9.1 H Eos % (Auto) 2.0 Baso % (Auto) 1.0 Neut # (Auto) 4.0 Lymph # (Auto) 1.9 [place] # (Auto) 0.6 Eos # (Auto) 0.1 Baso # (Auto) 0.1 WBC Differential . Diff Scan Differential Comment Auto diff final PT 10.9 INR 1.1 APTT 35.0 H Sodium Potassium Chloride Carbon Dioxide Anion Gap BUN Creatinine Estimated GFR Random Glucose Calcium Magnesium Total Bilirubin Direct Bilirubin Indirect Bilirubin AST ALT Alkaline Phosphatase Total Protein Albumin Lipase Urine Color Wendie Urine Clarity Clear Urine pH 7.0 Ur Specific [place] 1.017 Urine Protein 30 H Urine Glucose (UA) Negative Urine Ketones Negative Urine Occult Blood Negative Urine Nitrate Negative Urine Bilirubin Moderate H Urine Ictotest Positive H Urine Urobilinogen 1.0 Ur Leukocyte Esterase Negative Urine RBC Less than 1 Urine WBC 1 Amorphous Sediment Rare H Urine Bacteria Rare H Urine Mucus Few H Micro UA Comment Culture not ind Ur Microscopic Review Not Reportable Urine Culture Comments Culture not ind Hepatitis A IgM Ab Hep Bs Antigen Hep B Core IgM Ab Hep C IgG Ab HIV 1&2 Ab/P24 Ag 4thGn 04/16/18 04/16/18 04/17/18 21:05 23:10 08:11 WBC 6.7 RBC 5.41 Hgb 16.0 Hct 46.9 MCV 86.7 MCH 29.5 MCHC 34.1 RDW 14.9 Plt Count 333 MPV 7.6 Prelim Diff (Auto) Slide review pending Neut % (Auto) 60.1 Lymph % (Auto) 28.2 [place] % (Auto) 9.0 H Eos % (Auto) 2.1 Baso % (Auto) 0.6 Neut # (Auto) 4.0 Lymph # (Auto) 1.9 [place] # (Auto) 0.6 Eos # (Auto) 0.1 Baso # (Auto) 0.0 WBC Differential . Diff Scan Auto diff confirmed Differential Comment . PT INR APTT Sodium 139 Potassium 3.9 Chloride 101 Carbon Dioxide 30.6 Anion Gap 7 BUN 9 Creatinine 1.07 Estimated GFR 81 L Random Glucose 106 Calcium 9.0 Magnesium 2.2 Total Bilirubin 9.5 H Direct Bilirubin 7.6 H Indirect Bilirubin 1.9 H AST 1410 H ALT 1427 H Alkaline Phosphatase 160 H Total Protein 7.7 Albumin 4.0 Lipase 181 Urine Color Urine Clarity Urine pH Ur Specific [place] Urine Protein Urine Glucose (UA) Urine Ketones Urine Occult Blood Urine Nitrate Urine Bilirubin Urine Ictotest Urine Urobilinogen Ur Leukocyte Esterase Urine RBC Urine WBC Amorphous Sediment Urine Bacteria Urine Mucus Micro UA Comment Ur Microscopic Review Urine Culture Comments Hepatitis A IgM Ab Nonreactive Hep Bs Antigen Nonreactive Hep B Core IgM Ab Nonreactive Hep C IgG Ab Nonreactive HIV 1&2 Ab/P24 Ag 4thGn Nonreactive 04/17/18 08:11 WBC RBC Hgb Hct MCV MCH MCHC RDW Plt Count MPV Prelim Diff (Auto) Neut % (Auto) Lymph % (Auto) [place] % (Auto) Eos % (Auto) Baso % (Auto) Neut # (Auto) Lymph # (Auto) [place] # (Auto) Eos # (Auto) Baso # (Auto) WBC Differential Diff Scan Differential Comment PT INR APTT Sodium 140 Potassium 3.6 Chloride 102 Carbon Dioxide 26.8 Anion Gap 11 BUN 7 Creatinine 0.93 Estimated GFR Random Glucose 104 Calcium 8.9 Magnesium Total Bilirubin 9.0 H Direct Bilirubin Indirect Bilirubin AST 1385 H ALT 1353 H Alkaline Phosphatase 144 H Total Protein 7.0 D Albumin 3.7 Lipase Urine Color Urine Clarity Urine pH Ur Specific [place] Urine Protein Urine Glucose (UA) Urine Ketones Urine Occult Blood Urine Nitrate Urine Bilirubin Urine Ictotest Urine Urobilinogen Ur Leukocyte Esterase Urine RBC Urine WBC Amorphous Sediment Urine Bacteria Urine Mucus Micro UA Comment Ur Microscopic Review Urine Culture Comments Hepatitis A IgM Ab Hep Bs Antigen Hep B Core IgM Ab Hep C IgG Ab HIV 1&2 Ab/P24 Ag 4thGn - Imaging Impressions Abdomen/Pelvis CT 04/16/18 20:35 CONCLUSION: 1. Mildly prominent periportal lymph nodes nodes identified, otherwise unremarkable study. Assessment and Plan (1) Elevated transaminase level Status: Acute Code(s): R74.0 - Nonspecific elevation of levels of transaminase and lactic acid dehydrogenase [LDH] (2) Acute hepatitis Status: Acute Code(s): B17.9 - Acute viral hepatitis, unspecified - Plan Patient is a pleasant 32-year-old male with past medical history significant for IV drug abuse. Past use of cocaine for which he has been through detoxification program. There is no previous pertinent surgical history as per patient. Patient presented to the [facility] emergency department for evaluation of dark urine with jaundice generalized itching and generalized fatigue. Patient reports that he has been 3 weeks sober from IV drug use until 2 days ago when he used IV Dilaudid. Patient does endorse history of using shared needles. Patient endorses dark urine for the past 2 weeks with jaundice and scleral icterus for the last 2 days. Patient states he has been having accompanying nausea with emesis and generalized fatigue. Patient denies any obvious bleeding. Patient endorses homemade tattoos, high risk sexual behavior and again IV drug abuse. Patient denies any known family history of gastrointestinal disorders. Our service has been consulted to evaluate patient for acute hepatitis Acute hepatitis-transaminitis Jaundice Generalized fatigue and itching Patient endorses 5-year history of IV drug use. States he has used cocaine and Dilaudid IV. Endorses the use of shared needles. Presents to [facility] with complaint of dark colored urine with generalized weakness, jaundice and scleral icterus. Patient denies abdominal pain. 04/16/2018 CT abdomen and pelvis reveal the following:Lung bases are clear. Osseous structures are intact. No pleural or pericardial effusions are seen. Liver, gallbladder, spleen, kidneys, adrenal glands, stomach, pancreas unremarkable. There are mildly lymph nodes measuring up to 1.7 cm on image 30. Urinary bladder, prostate, small bowel, large bowel, appendix unremarkable. No aneurysm is seen. No free fluid or free air. -Acute hepatitis panel nonreactive -HIV 1 and 2 nonreactive -Total bilirubin 9.0 AST 1385 ALT 1353 alk phos 144 -Lipase 181 INR 1.1 -WBC 6.7 hemoglobin 16 hematocrit 46 platelet count 333 Plan -N.p.o. after midnight -MRCP in a.m. -HCV genotype -Monitor LFTs -Questran twice daily -Liver immunology pending -Supportive care -Discussion regarding EtOH and illicit drug use cessation -Further recommendations to follow This patient has been seen by myself and Dr. Schreiber and this note is written on his behalf - Attending Attestation Dr. Schreiber
[2018-04-18 08:53] LABS: Albumin 3.5 g/dL (3.4-5.0); Anion Gap 10 meq/L (5-15); Blood Urea Nitrogen 8 mg/dL (7-18); Calcium 9.2 mg/dL (8.5-10.1); Carbon Dioxide 26.5 meq/L (21.0-32.0); Chloride 104 meq/L (98-107); Glucose,Random 108 mg/dL (74-106); Potassium 4.1 meq/L (3.5-5.1); Sodium 140 meq/L (136-145)
[2018-04-18 09:00] LABS: % Iron Saturation 32.1 % (20-50)
[2018-04-18 09:01] LABS: Alanine Aminotransferase 1425 U/L (12-78); Alkaline Phosphatase 144 U/L (45-117); Aspartate Aminotransferase 1552 U/L (15-37); Total Protein 6.8 g/dL (6.4-8.2)
--- NOTE | 2018-04-18 09:19 | MR ---
EXAM DATE: 04/18/2018 9:13 AM EST AGE/SEX: 32 years / Male INDICATIONS: Abdominal pain. Juandice. CLINICAL DATA: This is the patient's subsequent encounter. Patient reports that signs and symptoms h ave been present for 2 days and indicates a pain score of 2/10. MEDICAL/SURGICAL HISTORY: None. None. COMPARISON: [facility] [place], CT ABDOMEN & PELVIS W CONTRAST, 04/16/2018. . TECHNIQUE: Multiplanar, multisequence images of the abdomen were obtained without contrast including dedicated cholangiographic images. FINDINGS: Gallbladder is small without ductal dilatation. Trace ascites is evident. There is no common duct sto ne. Mild peripancreatic edema is present. There is no focal lesion within the liver. Portion of kidne ys identified are unremarkable. CONCLUSION: 1. Mild pancreatic edema. Pancreatitis should be excluded clinically 2. Small contracted gallbladder without stones 3. There is no intrahepatic biliary duct dilatation. Electronically signed by: Aníbal Palomares MD Board Certified Radiologist 04/18/2018 9:17 AM EST
--- NOTE | 2018-04-18 09:29 | P.PNGI ---
Subjective Interval history: Patient laying in bed comfortably No complaints of abdominal pain Aware of MRCP today Physical Exam Vital signs: Vital Signs 04/17/18 15:49 04/17/18 20:00 04/18/18 00:00 Temperature 98.8 F 98.7 F 98.5 F Pulse Rate 72 86 62 Respiratory Rate 16 20 20 Blood Pressure 130/68 141/89 H 118/56 L Pulse Oximetry 95 95 95 04/18/18 04:00 Temperature 98.5 F Pulse Rate 59 L Respiratory Rate 17 Blood Pressure 112/53 L Pulse Oximetry 97 Intake & Output 04/17/18 04/18/18 04/18/18 18:59 06:59 18:59 Intake Total 240 / 240 Balance 240 / 240 Weight 104.545 kg Intake: Oral 240 / 240 Other: # Voids 3 Date of Last Bowel Movement 04/17/18 Weight On Admission 104.545 kg - Constitutional no acute distress - Routine HEENT Exam Head: Present: normocephalic, atraumatic - Routine Neck Exam Present: supple - Routine Respiratory Exam Present: CTA bilaterally - Routine Cardiovascular Exam Present: RRR, S1, S2 - Routine Abdominal Exam Present: soft, normoactive bowel sounds. Absent: tenderness, distended - Routine Skin Exam Present: intact - Routine Neurological Exam Present: alert, oriented X3 Results - Labs CBC & Chem 7: 04/18/18 11:19 04/18/18 11:19 Laboratory Results - last 24 hr 04/17/18 04/17/18 04/18/18 08:11 08:11 08:00 WBC Differential . Diff Scan Auto diff confirmed Sodium 140 Potassium 3.6 Chloride 102 Carbon Dioxide 26.8 Anion Gap 11 BUN 7 Creatinine 0.93 Random Glucose 104 Calcium 8.9 Iron TIBC % Saturation Ferritin Total Bilirubin 9.0 H AST 1385 H ALT 1353 H Alkaline Phosphatase 144 H Ammonia 49 H Total Protein 7.0 D Albumin 3.7 04/18/18 04/18/18 08:00 08:00 WBC Differential Diff Scan Sodium 140 Potassium 4.1 Chloride 104 Carbon Dioxide 26.5 Anion Gap 10 BUN 8 Creatinine 1.03 Random Glucose 108 H Calcium 9.2 Iron 140 TIBC 437 % Saturation 32.1 Ferritin 2443 H Total Bilirubin 10.5 H AST 1552 H ALT 1425 H Alkaline Phosphatase 144 H Ammonia Total Protein 6.8 Albumin 3.5 - Imaging Impressions Cholangiopancreatography MRI 04/18/18 00:00 CONCLUSION: 1. Mild pancreatic edema. Pancreatitis should be excluded clinically 2. Small contracted gallbladder without stones 3. There is no intrahepatic biliary duct dilatation. Assessment and Plan (1) Elevated transaminase level Status: Acute Code(s): R74.0 - Nonspecific elevation of levels of transaminase and lactic acid dehydrogenase [LDH] (2) Acute hepatitis Status: Acute Code(s): B17.9 - Acute viral hepatitis, unspecified - Plan Patient is a pleasant 32-year-old male with past medical history significant for IV drug abuse. Past use of cocaine for which he has been through detoxification program. There is no previous pertinent surgical history as per patient. Patient presented to the [facility] emergency department for evaluation of dark urine with jaundice generalized itching and generalized fatigue. Patient reports that he has been 3 weeks sober from IV drug use until 2 days ago when he used IV Dilaudid. Patient does endorse history of using shared needles. Patient endorses dark urine for the past 2 weeks with jaundice and scleral icterus for the last 2 days. Patient states he has been having accompanying nausea with emesis and generalized fatigue. Patient denies any obvious bleeding. Patient endorses homemade tattoos, high risk sexual behavior and again IV drug abuse. Patient denies any known family history of gastrointestinal disorders. Our service has been consulted to evaluate patient for acute hepatitis Acute hepatitis-transaminitis Jaundice Generalized fatigue and itching Patient endorses 5-year history of IV drug use. States he has used cocaine and Dilaudid IV. Endorses the use of shared needles. Presents to [facility] with complaint of dark colored urine with generalized weakness, jaundice and scleral icterus. Patient denies abdominal pain. 04/16/2018 CT abdomen and pelvis reveal the following:Lung bases are clear. Osseous structures are intact. No pleural or pericardial effusions are seen. Liver, gallbladder, spleen, kidneys, adrenal glands, stomach, pancreas unremarkable. There are mildly lymph nodes measuring up to 1.7 cm on image 30. Urinary bladder, prostate, small bowel, large bowel, appendix unremarkable. No aneurysm is seen. No free fluid or free air. -Acute hepatitis panel nonreactive -HIV 1 and 2 nonreactive -Total bilirubin 9.0 AST 1385 ALT 1353 alk phos 144 -Lipase 181 INR 1.1 -WBC 6.7 hemoglobin 16 hematocrit 46 platelet count 333 04/18/2008 Assessment Acute transaminitis Jaundice Transaminitis remains elevated AST 1552 ALT 1425 alkaline phosphatase 144 lipase normal at 181 MRCP showed 04/18/18 Mild pancreatic edema. Pancreatitis should be excluded clinically 2. Small contracted gallbladder without stones 3. There is no intrahepatic biliary duct dilatation Plan -Full liquid diet then diet as tolerated. -MRCP today showed pancreatic edema most likely reactive from transaminitis/ hepatitis -We are checking for hepatitis C viral load just to make sure patients already negative to all the hepatitis antibody -Monitor LFTs lipase -Questran twice daily to relieve itching -Liver immunology pending -Supportive care -EtOH/illicit drugs use and unprotected sexual behavior were thoroughly discussed with the patient -Patient agrees to change his healthy lifestyle GI will signed off reconsult as needed Patient can follow-up as an outpatient 2 weeks after discharge This patient has been seen by myself and Dr. Schreiber and this note is written on his behalf - Attending Attestation Dr. Schreiber
[2018-04-18] MEDS: Senna/Docusate Sodium 8.6/50 MG Tablet PO SCH (10:05)
--- NOTE | 2018-04-18 11:02 | P.PNIM ---
Subjective Interval history: No abd pain. Patient requesting a PO diet. No other complaints. Physical Exam Vital signs: Vital Signs 04/17/18 15:49 04/17/18 20:00 04/18/18 00:00 Temperature 98.8 F 98.7 F 98.5 F Pulse Rate 72 86 62 Respiratory Rate 16 20 20 Blood Pressure 130/68 141/89 H 118/56 L Pulse Oximetry 95 95 95 04/18/18 04:00 Temperature 98.5 F Pulse Rate 59 L Respiratory Rate 17 Blood Pressure 112/53 L Pulse Oximetry 97 Intake & Output 04/17/18 04/18/18 04/18/18 18:59 06:59 18:59 Intake Total 240 / 240 Balance 240 / 240 Weight 104.545 kg Intake: Oral 240 / 240 Other: # Voids 3 Date of Last Bowel Movement 04/17/18 Weight On Admission 104.545 kg Narrative: alert and oriented Scleral icterus S1S2 CTA b/l abd soft, nontender, normal bowel sounds, no right upper quadrant tenderness No edema of the exts no neuro deficits. Results Labs CBC & Chem 7: 04/17/18 08:11 04/18/18 08:00 Imaging Imaging: Impressions Cholangiopancreatography MRI 04/18/18 00:00 CONCLUSION: 1. Mild pancreatic edema. Pancreatitis should be excluded clinically 2. Small contracted gallbladder without stones 3. There is no intrahepatic biliary duct dilatation. Assessment and Plan (1) Elevated transaminase level: Code(s): R74.0 - Nonspecific elevation of levels of transaminase and lactic acid dehydrogenase [LDH] Status: Acute (2) Acute hepatitis: Code(s): B17.9 - Acute viral hepatitis, unspecified Status: Acute Plan This patient is a 32 y/o male with a hx of IVDA who presents to the Ed with complaints of dark urine. He also has been experiencing weakness and fatigue. 1. Acute Hepatitis Patient with elevated LFTs AST/ALT 1380/1350, elevated to around 1500 today. Total bilirubin is 9.5, direct 7.6 yesterday, T bili 10.[address] abd negative Hepatitis panel is negative, Hep C genotype ordered and is pending. HIV negative. GI consulted, MRCP done which doesn't show any ductal dilation, Pancreatitis however clinically no abd pain, no n/v. Will follow up am labs and recs from GI today. 2. IVDA Patient counseled on the dangers of continued use of IV drugs. He says he will quit. Pt is ambulatory, no pharmacotherapy for dvt prophylaxis. Encouraged ambulation. Progress Note: Quality VTE Deep Vein Thrombosis/Pulmonary Embolism Present on Admission: No
[2018-04-18 12:06] LABS: Baso % (Auto) 0.5 % (0.0-2.0); Eos # (Auto) 0.2 th/mm3 (0.0-0.4); Eos % (Auto) 3.8 % (0.0-4.0); Hematocrit 46.5 % (39.0-51.0); Hemoglobin 15.9 gm/dL (13.0-17.0); Lymph # (Auto) 1.5 th/mm3 (1.0-4.8); Mean Corpuscular HGB Conc 34.2 % (32.0-36.0); Mean Corpuscular Hemoglobin 29.7 pg (27.0-34.0); Mean Corpuscular Volume 86.8 fL (80.0-100.0); Mean Platelet Volume 7.5 fL (7.0-11.0); Mono # (Auto) 0.5 th/mm3 (0.0-0.9); Mono % (Auto) 9.3 % (0.0-8.0); Neut # (Auto) 3.2 th/mm3 (1.8-7.7); Neut % (Auto) 59.4 % (16.0-70.0); Platelet Count 319 th/mm3 (150-450); Red Blood Count 5.36 mil/mm3 (4.50-5.90); Red Cell Distribution Width 15.5 % (11.6-17.2); White Blood Count 5.5 th/mm3 (4.0-11.0)
[2018-04-18 12:27] LABS: Calcium 9.1 mg/dL (8.5-10.1); Carbon Dioxide 27.7 meq/L (21.0-32.0); Potassium 3.9 meq/L (3.5-5.1)
[2018-04-19] MEDS: Senna/Docusate Sodium 8.6/50 MG Tablet PO SCH ×2 (01:45→09:35)
[2018-04-19 07:37] LABS: Albumin 3.2 g/dL (3.4-5.0); Anion Gap 10 meq/L (5-15); Blood Urea Nitrogen 9 mg/dL (7-18); Calcium 8.8 mg/dL (8.5-10.1); Carbon Dioxide 26.4 meq/L (21.0-32.0); Chloride 105 meq/L (98-107); Glucose,Random 109 mg/dL (74-106); Potassium 3.9 meq/L (3.5-5.1); Sodium 141 meq/L (136-145)
[2018-04-19 07:45] LABS: Alanine Aminotransferase 1440 U/L (12-78); Alkaline Phosphatase 126 U/L (45-117); Aspartate Aminotransferase 1613 U/L (15-37); Total Protein 6.2 g/dL (6.4-8.2)
[2018-04-19 09:13] VITALS: RESP 20
[2018-04-19 10:29] LABS: Smooth Muscle Total Auto Abs Negative (Negative)
[2018-04-19 13:31] VITALS: BP 108/58; PULSE 65; TEMP 98.9; O2SAT 96
--- NOTE | 2018-04-19 17:03 | P.DS ---
DS: Providers Date of admission: 04/16/18 22:25 Primary care physician: No Primary Care Physician Consults: 04/16/18 22:49 Consult to Gastroenterology Routine Consulting Provider: Sekou Schreiber V Reason for Consultation: acute hepatitis Notified:: Service Spoke with:: ANA MARIA Date Notified:: 04/16/18 Time Notified:: 23:10 Ordering Provider: ALON DS: Diagnosis Discharge Diagnosis (1) Elevated transaminase level: Status: Acute (2) Acute hepatitis: Status: Acute DS: Summary This patient is a 32 y/o male with a hx of IVDA who presents to the Ed with complaints of dark urine. He also has been experiencing weakness and fatigue. He admitted to recent IV cocaine use. He was found to have acute transaminitis and was admitted and evaluated by GI. 1. Acute Transaminitis Patient with elevated LFTs on admission. AST/ALT 1380/1350, elevated to around 1600s today. Total bilirubin is 9.5, direct 7.6 yesterday, T bili still increasing slightly CT abd negative Hepatitis panel is negative, Hep C genotype ordered and is pending. HIV negative. GI consulted, MRCP done which doesn't show any ductal dilation, Pancreatitis however clinically no abd pain, no n/v. I discussed the case with Dr. Schreiber today who has cleared the patient for discharge. The patient admits to recent iv cocaine use and his elevation in LFTs is likely 2/2 hepatic ischemia from cocaine use. GI recommends that the patient follow up with his pcp in one week. He can also follow up with GI within two weeks and a repeat CMP can be performed to evaluate his liver function. Patient was advised to to return to the Ed If he begins to have fevers, abd pain , or any other acute symptoms. Patient advised to avoid alcohol, avoid tylenol. He was started on a po diet and is tolerating it well. He will be discharged home. 2. IVDA Patient counseled on the dangers of continued use of IV drugs. He says he will quit. Time Spent with Patient Total time spent providing and/or coordinating discharge services: Greater than 30 minutes Quality: VTE Deep Vein Thrombosis/Pulmonary Embolism Present on Admission: No Exam Narrative Exam Narrative: Scleral icterus S1S2 CTA b/l abd soft, nontender, normal bowel sounds, no right upper quadrant tenderness No edema of the exts no neuro deficits. Results Labs on day of discharge: Labs from last 24 hours 04/19/18 04/19/18 04/18/18 10:00 06:00 08:00 Sodium 141 Potassium 3.9 Chloride 105 Carbon Dioxide 26.4 Anion Gap 10 BUN 9 Creatinine 1.04 Random Glucose 109 H Calcium 8.8 Total Bilirubin 11.3 H AST 1613 H ALT 1440 H Alkaline Phosphatase 126 H Total Protein 6.2 L D Albumin 3.2 L Stool [id number] Pending Anti-Smooth Muscle Ab Negative Impressions ITS Impressions Abdomen/Pelvis CT 04/16/18 20:35 CONCLUSION: 1. Mildly prominent periportal lymph nodes nodes identified, otherwise unremarkable study. Cholangiopancreatography MRI 04/18/18 00:00 CONCLUSION: 1. Mild pancreatic edema. Pancreatitis should be excluded clinically 2. Small contracted gallbladder without stones 3. There is no intrahepatic biliary duct dilatation. Discharge Plan Discharge Disposition Patient Disposition: 01 Discharge Home Discharge Condition Condition: Stable Discharge Order Discharge Orders: Discharge Order (Routine); Ordered 04/19/18 Ordered By: Eric Shetty ED Use Only Admit Order (Routine); Ordered 04/16/18 Ordered By: Duane Tom Discharge Details Diagnosis: Elevated transaminase level, Acute hepatitis Physicians Team ED Provider: David Lopes ED Midlevel Provider: Duane Tom Primary Care Provider: Primary Cleo Mendez Attending Provider: Eric Shetty Other Providers: Sekou Schreiber V Rxs /Orders / Referrals /Forms Prescriptions: New cholestyramine (with sugar) 4 gram Powder In Packet 4 gm PO BID Qty: 14 RF: 0 No Action No Known Home Medications RF: 0 Referrals: Primary Care Cleo Hicks [Primary Care Provider] - See Instructions Status ED Status: Left Department
[2018-04-20 23:51] LABS: DS DNA Ab (Crithidia) NEGATIVE (NEGATIVE)
[2018-04-21 17:52] LABS: Ceruloplasmin 29 mg/dL (18-36)
== END 2018-04-19 18:30 | disposition home or self-care (01) | DRG 442 ==
LOC: NEPB 18:09 → NEDA 22:25 → NEDH 04-17 02:20 → NEPFCDU 04-17 09:20
PROVIDERS: ADMIT Hospitalist; ATTEND Hospitalist
CPT/HCPCS: 74177; 74181; 76377; 80048; 80053; 80074; 80076; 81001; 82103; 82140; 82390; 82728; 83520; 83540; 83550; 83690; 83735; 85025; 85610; 85730; 86038; 86039; 86225; 86235; 86255; 86256; 86431; 87389; 87902; 99285; J7120; Q0163; Q9967